=== PATIENT | female | born 1960 | race Caucasian/White ===

== ENCOUNTER → 2018-06-04 13:14 | Outpatient (CLI) | payer MEDICARE, SELFPAY ==
[2018-06-04 13:36] LABS: Anion Gap 16.7 mEq/L (5-15); Blood Urea Nitrogen 25 mg/dL (7-18); Carbon Dioxide 23 mmol/L (21.0-32.0); Chloride 105 mmol/L (98-107); Estimated Glomerular Filt Rate 57 ml/min (>60); GFR (African American) 69 ML/MIN (>60); Glucose 113 mg/dL (74-106); Potassium 4.7 mmoL/L (3.5-5.1); Sodium 140 mmol/L (136-145)
== END ==
PROVIDERS: Visit Provider Emergency Medicine
DX: R53.83 Other fatigue (principal)
CPT/HCPCS: 80048